=== PATIENT | male | born 1960 | race Hispanic/Latino ===

== ENCOUNTER 2022-01-13 04:53 | Emergency (ER) | payer SELFPAY ==
[2022-01-13] MEDS ORDERED: FOLIC ACID 5 MG/ML VIAL ONE (05:24)
[2022-01-13] MEDS ORDERED: NA CHLORIDE 0.9% 1,000 ML ONE (05:24)
[2022-01-13] MEDS ORDERED: ASPIRIN 81 MG CHEWABLE TABLET ONE (05:31)
--- NOTE | 2022-01-13 05:37 | ER ---
Nurse's Notes [facility] Name: Wolfgang Daniel Age: 61 yrs Sex: Male : 1960 Arrival Date: 01/13/2022 Time: 04:55 Bed 13 Private MD: Diagnosis: Cerebral infarction, unspecified-DENSE LEFT HEMIPARESIS;Non ST elevation ND;Cerebral infarction due to unspecified occlusion or stenosis of left carotid arteries-INTERNAL CAROTID;Cerebral infarction due to unspecified occlusion or stenosis of left vertebral artery-NEAR COMPLETE;Essential (primary) hypertension;Type 2 diabetes mellitus with hyperglycemia Presentation: 01/13 05:00 Chief complaint: Patient's son or daughter states: "We found him on the kitchen floor vc1 unable to move his left side.". 05:00 Acuity: RIKA 2 vc1 05:00 Coronavirus screen: Vaccine status: Patient reports being unvaccinated. At this time, vc1 the client does not indicate any symptoms associated with coronavirus-19. Ebola Screen: No symptoms or risks identified at this time. An acute neurological deficit is present. The charge nurse has been notified. The patient has been moved to a treatment area. Pre-hospital glucose is not applicable to this patient. Initial Sepsis Screen: Does the patient meet any 2 criteria? No. Patient's initial sepsis screen is negative. Does the patient have a suspected source of infection? No. Patient's initial sepsis screen is negative. Risk Assessment: Do you want to hurt yourself or someone else? Patient reports no desire to harm self or others. Onset of symptoms is unknown. 05:00 Method Of Arrival: Wheelchair vc1 Triage Assessment: 06:00 The onset of the patients symptoms was at an unknown time. General: Appears vc1 uncomfortable, Behavior is cooperative, flat. Pain: Denies pain. EENT: No deficits noted. Neuro: Level of Consciousness is obeys commands, lethargic, listless, Oriented to person, place, situation, Customer Engineer are weak on left Paralysis in left arm(s) leg(s) Speech is slurred, Facial droop on left, Reports weakness in left leg and left arm. Cardiovascular: No deficits noted. Respiratory: Airway is patent Respiratory effort is even, unlabored, Respiratory pattern is regular, symmetrical. GI: No deficits noted. : No deficits noted. Derm: No deficits noted. Musculoskeletal: No deficits noted. 07:00 The onset of the patients symptoms was The onset of the patients symptoms was at an jg9 unknown time. Stroke Activation: Symptom onset > 6 hours Physician: Stroke Attending; Name: ; Notified At: ; Arrived At: Physician: Chief Stroke Resident; Name: ; Notified At: ; Arrived At: Physician: Stroke Resident; Name: ; Notified At: ; Arrived At: Physician: ED Attending; Name: ; Notified At: ; Arrived At: Physician: ED Resident; Name: ; Notified At: ; Arrived At: Historical: - Allergies: 05:00 No Known Allergies; vc1 - Home Meds: 05:00 metformin 850 mg Oral tab 1 tab 3 times per day [Active]; aspirin 81 mg Oral chew 1 tab vc1 once daily [Active]; - PMHx: 05:00 Hypertensive disorder; Diabetes mellitus; vc1 - PSHx: 05:00 None; vc1 - Immunization history:: Adult Immunizations up to date, Client reports having NOT received the Covid vaccine. - Social history:: Smoking status: Patient denies any tobacco usage or history of. - Family history:: not pertinent. Screenin:00 Abuse screen: Denies threats or abuse. Nutritional screening: No deficits noted. vc1 Tuberculosis screening: No symptoms or risk factors identified. Fall Risk Fall in past 12 months (25 points). No secondary diagnosis (0 pts). IV access (20 points). Ambulatory Aid- None/Bed Rest/Nurse Assist (0 pts). Gait- Impaired (20 pts.). Mental Status- Oriented to own ability (0 pts). Total Mendoza Fall Scale indicates Low Risk Score (25-44 pts). Fall prevention measures have been instituted. Side Rails Up X 2. Assessment: 05:40 VAN Scoring: Arm Drift: Flaccid/no antigravity Visual Disturbance: No visual vc1 disturbance noted. Aphasia: No aphasia noted. Neglect: No neglect noted. Patient has been NPO before screening. The patient is alert, and able to follow commands. The patient exhibits slurred or garbled speech. The patient is exhibiting difficulty speaking. The patient does not exhibit difficulty understanding words. The patient is able to swallow own secretions with no drooling or need for suction. The patient did not tolerate one teaspoon of water. Drooling, immediate coughing, gurgling, or clearing of the throat was noted. Bedside swallow screening discontinued. Patient kept NPO until cleared by Speech Therapy or Physician. The patient failed the bedside swallow screening. The patient will be kept NPO until cleared by Speech Therapy or Physician. Provider notified of bedside swallow screening results: Romeo Landis MD. T-PA (Activase) Screening: Indications: Definite evidence of stroke, ischemic, embolic, or hypertensive: Yes. Treatment will start within 4.5 hours onset of symptoms: No. Contraindications: Patient reports onset of signs and symptoms of stroke greater than 6 hours ago: Yes. Pain: Denies pain. Neuro: Level of Consciousness is lethargic, Oriented to person, place. 07:22 Reassessment: Patient and/or family updated on plan of care and expected duration. Pain jg9 level reassessed. Patient is alert, oriented x 3, equal unlabored respirations, skin warm/dry/pink. Patient alert in bed, hemiplegia has resolved, patient passed swallow screen, no distress, vss Patient states symptoms have improved. 07:50 Reassessment: Heparin drip and Magnesium drip given to flight crew to start en route. jg9 07:52 Reassessment: report called to [facility] Charge Nurse, Gabriela. jg9 Vital Signs: 05:00 BP 106 / 70; Pulse 75; Resp 16; Temp 97.4(O); Pulse Ox 100% on R/A; Weight 61.23 kg; vc1 Height 5 ft. 4 in. (162.56 cm); Pain 0/10; 05:30 BP 112 / 66; Pulse 69; Resp 16; Pulse Ox 100% ; vc1 06:00 BP 116 / 71; Pulse 70; Resp 13; Pulse Ox 100% ; vc1 07:00 BP 118 / 71; Pulse 76; Resp 18; Pulse Ox 98% on R/A; vc1 05:00 Body Mass Index 23.17 (61.23 kg, 162.56 cm) vc1 NIH Stroke Scale Scores: 05:24 NIHSS Score: 17 benito 05:40 NIHSS Score: 13 vc1 07:03 NIHSS Score: 0 vc1 ED Course: 04:55 Patient arrived in ED. as 04:57 Romeo Landis MD is Attending Physician. benito 05:00 Arm band placed on left wrist. EKG completed in triage. Results shown to MD. vc1 05:00 Patient has correct armband on for positive identification. Bed in low position. Call vc1 light in reach. Side rails up X2. Client placed on continuous cardiac and pulse oximetry monitoring. NIBP monitoring applied. 05:10 CT Stroke Brain w/o Contrast In Process Unspecified. EDMS 05:15 Inserted saline lock: 18 gauge in right antecubital area, using aseptic technique. vc1 05:15 Inserted saline lock: 18 gauge in left antecubital area, using aseptic technique. Blood vc1 collected. 05:22 XRAY Chest (1 view) In Process Unspecified. EDMS 05:59 Triage completed. vc1 06:23 Notified ED physician of a critical lab result(s). Troponin 43582. lp1 06:39 CT Head Angio In Process Unspecified. EDMS 06:40 CT Neck Angio In Process Unspecified. EDMS 07:11 administrative approval given by Shae Perdomo Rn/ patient has been accepted to [facility]/ Dr. Fish Caraballo has accepted the patient in transfer/ patient can not leave until the CTA results have been called to the transfer center/ report to be called to the transfer center at [phone]. 07:20 Saundra Turner, RN is Primary Nurse. jg9 07:42 Add On-Lab Sent. jg9 07:51 No provider procedures requiring assistance completed. jg9 07:52 Patient transferred, IV remains in place. jg9 Administered Medications: 05:23 Drug: foLIC Acid 1 mg Route: IVPB; Site: right antecubital; lp1 07:21 Follow up: IV Status: Completed infusion; IV Intake: 0.2ml jg9 05:23 Drug: NS 0.9% 1000 ml Route: IV; Rate: 1 bolus; Site: right antecubital; lp1 07:20 Follow up: IV Status: Completed infusion; IV Intake: 1000ml jg9 05:33 Drug: Aspirin Chewable Tablet 324 mg Route: PO; lp1 07:20 Follow up: Response: No adverse reaction jg9 07:15 Drug: PlaVIX (clopidogrel) 75 mg Route: PO; jg9 07:22 Follow up: Response: No adverse reaction jg9 07:38 Drug: Heparin (ND-Bolus No thrombolytic) - HEParin 60 units/kg {Co-Signature: lp1 jg9 (Aurora Hwang RN).} Route: IVP; Site: right antecubital; 07:40 Drug: Pepcid (famotidine) 20 mg Route: IVP; Site: right antecubital; jg9 07:42 Follow up: Response: No adverse reaction jg9 07:40 Drug: Lipitor (atorvastatin) 40 mg Route: PO; jg9 07:41 Follow up: Response: No adverse reaction jg9 07:41 Drug: PlaVIX (clopidogrel) 225 mg Route: PO; jg9 07:41 Follow up: Response: No adverse reaction jg9 Medication: 05:40 VIS not applicable for this client. vc1 Point of Care Testing: Blood Glucose: 05:00 Blood Glucose: 107 mg/dL; vc1 Ranges: Intake: 07:20 IV: 1000ml; Total: 1000ml. jg9 07:21 IV: 0ml; Total: 1000ml. jg9 Outcome: 05:37 ER care complete, transfer ordered by [facility] 07:51 [facility]red by helicopter to [facility], Transfer form completed. jg9 X-rays sent w/ patient. 07:51 Condition: stable 07:53 Patient left the ED. jg9 NIH Stroke Scale - NIH Stroke Score Date: 01/13/2022 Time: 05:24 Total Score = 17 1a. Level of Consciousness (LOC) - 1(Not Alert) 1b. Level of Consciousness (LOC) (Month \\T\\ Age) - 2(Neither) 1c. LOC Commands (Open \\T\\ Closes Eyes/Hatchery Attendant) - 0(Both) 2. Best Gaze (Lateral Gaze Paresis) - 0(Normal) 3. Visual Field Loss - 0(No visual loss) 4. Facial Palsy - 2(Partial paralysis) 5a. Left Arm: Motor (10-second hold) - 3(No effort against gravity) 5b. Right Arm: Motor (10-second hold) - 0(No drift) 6a. Left Leg: Motor (5-second hold - always test supine) - 3(No effort against gravity) 6b. Right Leg: Motor (5-second hold - always test supine) - 0(No drift) 7. Limb Ataxia (finger/nose \\T\\ heel/[place] - test with eyes open) - 2(Present in two limbs) 8. Sensory Loss (pinprick arms/legs/face) - 1(Mild to moderate loss) 9. Best Language: Aphasia (description/naming/reading) - 1(Mild to moderate aphasia) 10. Dysarthria (speech clarity - read or repeat words) - 1(Mild to Moderate) 11. Extinction and Inattention (visual/tactile/auditory/spatial/personal) - 1(Present) Initials: benito NIH Stroke Scale - NIH Stroke Score Date: 01/13/2022 Time: 05:40 Total Score = 13 1a. Level of Consciousness (LOC) - 1(Not Alert) 1b. Level of Consciousness (LOC) (Month \\T\\ Age) - 0(Both) 1c. LOC Commands (Open \\T\\ Closes Eyes/Hatchery Attendant) - 1(One) 2. Best Gaze (Lateral Gaze Paresis) - 0(Normal) 3. Visual Field Loss - 0(No visual loss) 4. Facial Palsy - 2(Partial paralysis) 5a. Left Arm: Motor (10-second hold) - 4(No movement) 5b. Right Arm: Motor (10-second hold) - 0(No drift) 6a. Left Leg: Motor (5-second hold - always test supine) - 4(No movement) 6b. Right Leg: Motor (5-second hold - always test supine) - 0(No drift) 7. Limb Ataxia (finger/nose \\T\\ heel/[place] - test with eyes open) - 0(Absent) 8. Sensory Loss (pinprick arms/legs/face) - 0(Normal) 9. Best Language: Aphasia (description/naming/reading) - 0(No aphasia) 10. Dysarthria (speech clarity - read or repeat words) - 1(Mild to Moderate) 11. Extinction and Inattention (visual/tactile/auditory/spatial/personal) - 0(No abnormality) Initials: vc1 NIH Stroke Scale - NIH Stroke Score Date: 01/13/2022 Time: 07:03 Total Score = 0 1a. Level of Consciousness (LOC) - 0(Alert) 1b. Level of Consciousness (LOC) (Month \\T\\ Age) - 0(Both) 1c. LOC Commands (Open \\T\\ Closes Eyes/Hatchery Attendant) - 0(Both) 2. Best Gaze (Lateral Gaze Paresis) - 0(Normal) 3. Visual Field Loss - 0(No visual loss) 4. Facial Palsy - 0(Normal) 5a. Left Arm: Motor (10-second hold) - 0(No drift) 5b. Right Arm: Motor (10-second hold) - 0(No drift) 6a. Left Leg: Motor (5-second hold - always test supine) - 0(No drift) 6b. Right Leg: Motor (5-second hold - always test supine) - 0(No drift) 7. Limb Ataxia (finger/nose \\T\\ heel/[place] - test with eyes open) - 0(Absent) 8. Sensory Loss (pinprick arms/legs/face) - 0(Normal) 9. Best Language: Aphasia (description/naming/reading) - 0(No aphasia) 10. Dysarthria (speech clarity - read or repeat words) - 0(Normal) 11. Extinction and Inattention (visual/tactile/auditory/spatial/personal) - 0(No abnormality) Initials: vc1 Signatures: Dispatcher [employer] EDRomeo Rodriguez MD MD cha Martinez, Amelia as Pena, Laura, RN RN lp1 Kylah Self Jennifer, RN RN jg9 Ronda De Paz RN RN vc1 Aurora Hwang RN lp1 Corrections: (The following items were deleted from the chart) 07:50 07:49 Magnesium Sulfate 1 grams IVPB in Other over 1 hrs jg9 jg9
--- NOTE | 2022-01-13 05:37 | EDPHYS ---
Physician Documentation [facility] Name: Wolfgang Daniel Age: 61 yrs Sex: Male : 1960 Arrival Date: 01/13/2022 Time: 04:55 Bed 13 Private MD: ED Physician Romeo Landis HPI: 01/13 05:24 This 61 yrs old Male presents to ER via Unassigned with complaints of S/S of benito Possible Stroke. 05:24 The patient's problem is reported as a facial droop, paresthesias, in left upper benito extremity, in left lower extremity, in left side of face, weakness, in the left upper extremity, in the left lower extremity, in the left side of face. Onset: The symptoms/episode began/occurred at an unknown time. Duration: The episode is continuous. Context: the episode(s) was witnessed, by family, symptoms became apparent at 04:30. The symptoms are alleviated by nothing. The symptoms are aggravated by nothing. Associated signs and symptoms: Pertinent positives: gait abnormality, DENSE LEFT ARM, LEG AND LEFT LOWER FACE PARESTHESIAS. Severity of symptoms: At their worst the symptoms were moderate severe in the emergency department the symptoms are unchanged. Patient's baseline: Neuro: alert and fully oriented. The patient has not experienced similar symptoms in the past. Historical: - Allergies: 05:00 No Known Allergies; vc1 - Home Meds: 05:00 metformin 850 mg Oral tab 1 tab 3 times per day [Active]; aspirin 81 mg Oral chew 1 tab vc1 once daily [Active]; - PMHx: 05:00 Hypertensive disorder; Diabetes mellitus; vc1 - PSHx: 05:00 None; vc1 - Immunization history:: Adult Immunizations up to date, Client reports having NOT received the Covid vaccine. - Social history:: Smoking status: Patient denies any tobacco usage or history of. - Family history:: not pertinent. ROS: 05:24 Constitutional: Negative for fever, chills, and weight loss, Eyes: Negative for injury, benito pain, redness, and discharge, ENT: Negative for injury, pain, and discharge, Neck: Negative for injury, pain, and swelling, Cardiovascular: Negative for chest pain, palpitations, and edema, Respiratory: Negative for shortness of breath, cough, wheezing, and pleuritic chest pain, Abdomen/GI: Negative for abdominal pain, nausea, vomiting, diarrhea, and constipation, Back: Negative for injury and pain, : Negative for injury, bleeding, discharge, and swelling, Skin: Negative for injury, rash, and discoloration, Psych: Negative for depression, anxiety, suicide ideation, homicidal ideation, and hallucinations, Allergy/Immunology: Negative for hives, rash, and allergies, Endocrine: Negative for neck swelling, polydipsia, polyuria, polyphagia, and marked weight changes, Hematologic/Lymphatic: Negative for swollen nodes, abnormal bleeding, and unusual bruising. 05:24 MS/extremity: Positive for decreased range of motion, paresthesias, of the face, left arm and left leg. Exam: 05:24 Radiologist reports: NEGATIVE benito 05:24 Constitutional: This is a well developed, well nourished patient who is awake, alert, and in no acute distress. Eyes: Pupils equal round and reactive to light, extra-ocular motions intact. Lids and lashes normal. Conjunctiva and sclera are non-icteric and not injected. Cornea within normal limits. Periorbital areas with no swelling, redness, or edema. ENT: Nares patent. No nasal discharge, no septal abnormalities noted. Tympanic membranes are normal and external auditory canals are clear. Oropharynx with no redness, swelling, or masses, exudates, or evidence of obstruction, uvula midline. Mucous membranes moist. Neck: Trachea midline, no thyromegaly or masses palpated, and no cervical lymphadenopathy. Supple, full range of motion without nuchal rigidity, or vertebral point tenderness. No Meningismus. Chest/axilla: Normal chest wall appearance and motion. Nontender with no deformity. No lesions are appreciated. Cardiovascular: Regular rate and rhythm with a normal S1 and S2. No gallops, murmurs, or rubs. Normal PMI, no JVD. No pulse deficits. Respiratory: Lungs have equal breath sounds bilaterally, clear to auscultation and percussion. No rales, rhonchi or wheezes noted. No increased work of breathing, no retractions or nasal flaring. Abdomen/GI: Soft, non-tender, with normal bowel sounds. No distension or tympany. No guarding or rebound. No evidence of tenderness throughout. Back: No spinal tenderness. No costovertebral tenderness. Full range of motion. Male : Normal genitalia with no discharge or lesions. Skin: Warm, dry with normal turgor. Normal color with no rashes, no lesions, and no evidence of cellulitis. MS/ Extremity: Pulses equal, no cyanosis. Neurovascular intact. Full, normal range of motion. Psych: Awake, alert, with orientation to person, place and time. Behavior, mood, and affect are within normal limits. 05:24 Neuro: Orientation: unable to test, Mentation: slow to respond, Memory: unable to test, Cranial nerves: facial droop noted on left, with forehead spared. Cerebellar function: unable to test, Motor: Strength is 1/5 in the face, left arm and left leg. 05:38 ECG was reviewed by the Attending Physician. benito 06:45 ECG was reviewed by the Attending Physician. [facility] Vital Signs: 05:00 BP 106 / 70; Pulse 75; Resp 16; Temp 97.4(O); Pulse Ox 100% on R/A; Weight 61.23 kg; vc1 Height 5 ft. 4 in. (162.56 cm); Pain 0/10; 05:30 BP 112 / 66; Pulse 69; Resp 16; Pulse Ox 100% ; vc1 06:00 BP 116 / 71; Pulse 70; Resp 13; Pulse Ox 100% ; vc1 07:00 BP 118 / 71; Pulse 76; Resp 18; Pulse Ox 98% on R/A; vc1 05:00 Body Mass Index 23.17 (61.23 kg, 162.56 cm) vc1 NIH Stroke Scale Scores: 05:24 NIHSS Score: 17 benito 05:40 NIHSS Score: 13 vc1 07:03 NIHSS Score: 0 vc1 MDM: 04:58 Patient medically screened. benito 05:34 Differential diagnosis: CVA, TIA, Dementia, paralysis, metabolic disorder, drug benito effects. Data reviewed: vital signs, nurses notes, lab test result(s), EKG, radiologic studies, CT scan, plain films. Data interpreted: sweatband maker: rate is 72 beats/min, rhythm is regular, Pulse oximetry: is not applicable for this patient encounter. is 72 %. Test interpretation: by ED physician or midlevel provider: ECG, plain radiologic studies. Counseling: I had a detailed discussion with the patient and/or guardian regarding: the historical points, exam findings, and any diagnostic results supporting the discharge/admit diagnosis, lab results, radiology results, the need to transfer to another facility, for higher level of care, [facility] does not immediately have the required specialist. 05:37 ED course: BED VAT 9PM , NORMAL, ON FLOOR 430 AM LEFT ALUREL AND LEFT LOWER FACE. [facility] 01/13 04:59 Order name: Basic Metabolic Panel; Complete Time: 06:24 [facility] 01/13 04:59 Order name: CBC with Diff; Complete Time: 06:24 [facility] 01/13 04:59 Order name: LFT's; Complete Time: 06:24 [facility] 01/13 04:59 Order name: Magnesium; Complete Time: 06:24 [facility] 01/13 04:59 Order name: NT PRO-BNP; Complete Time: 06:24 [facility] 01/13 04:59 Order name: PT-INR [facility] 01/13 04:59 Order name: Troponin HS; Complete Time: 06:24 [facility] 01/13 04:59 Order name: XRAY Chest (1 view) [facility] 01/13 04:59 Order name: CT Stroke Brain w/o Contrast [facility] 01/13 05:00 Order name: CT Head Angio [facility] 01/13 05:20 Order name: Glucose, Ancillary Testing; Complete Time: 06:24 EDMS 01/13 05:27 Order name: COVID-19 SARS RT PCR (Document "Date of Onset" if Symptomatic); Complete lp1 Time: 07:18 01/13 07:27 Order name: Add On-Lab jl7 01/13 07:31 Order name: PTT, Activated Partial Thromb EDMS 01/13 04:59 Order name: EKG; Complete Time: 05:03 [facility] 01/13 04:59 Order name: Cardiac monitoring; Complete Time: 05:14 [facility] 01/13 04:59 Order name: EKG - Nurse/Tech; Complete Time: 05:23 [facility] 01/13 04:59 Order name: IV Saline Lock; Complete Time: 05:15 [facility] 01/13 05:00 Order name: CT Neck Angio [facility] 01/13 06:26 Order name: EKG; Complete Time: 06:26 [facility] 01/13 04:59 Order name: Labs collected and sent; Complete Time: 05:15 [facility] 01/13 04:59 Order name: O2 Per Protocol; Complete Time: 05:15 [facility] 01/13 04:59 Order name: O2 Sat Monitoring; Complete Time: 05:15 benito 01/13 06:26 Order name: EKG - Nurse/Tech; Complete Time: 07:03 benito EC:38 Rate is 72 beats/min. Rhythm is regular. QRS [place] is Normal. [place] interval is normal. QRS benito interval is normal. QT interval is normal. No Q waves. T waves are Normal. No ST changes noted. Clinical impression: Normal ECG and No evidence of ischemia. Interpreted by me. Reviewed by me. 06:45 Rate is 77 beats/min. Rhythm is regular. QRS [place] is Normal. [place] interval is normal. QRS benito interval is normal. QT interval is normal. No Q waves. T waves are Normal. No ST changes noted. Clinical impression: Normal ECG, NSR w/ Non-specific ST/T Changes, and No evidence of ischemia. Interpreted by me. Reviewed by me. Administered Medications: 05:23 Drug: foLIC Acid 1 mg Route: IVPB; Site: right antecubital; lp1 07:21 Follow up: IV Status: Completed infusion; IV Intake: 0.2ml j9 05:23 Drug: NS 0.9% 1000 ml Route: IV; Rate: 1 bolus; Site: right antecubital; lp1 07:20 Follow up: IV Status: Completed infusion; IV Intake: 1000ml j9 05:33 Drug: Aspirin Chewable Tablet 324 mg Route: PO; lp1 07:20 Follow up: Response: No adverse reaction jg9 07:15 Drug: PlaVIX (clopidogrel) 75 mg Route: PO; jg9 07:22 Follow up: Response: No adverse reaction jg9 07:38 Drug: Heparin (NM-Bolus No thrombolytic) - HEParin 60 units/kg {Co-Signature: lp1 jg9 (Aurora Hwang RN).} Route: IVP; Site: right antecubital; 07:40 Drug: Pepcid (famotidine) 20 mg Route: IVP; Site: right antecubital; jg9 07:42 Follow up: Response: No adverse reaction jg9 07:40 Drug: Lipitor (atorvastatin) 40 mg Route: PO; jg9 07:41 Follow up: Response: No adverse reaction jg9 07:41 Drug: PlaVIX (clopidogrel) 225 mg Route: PO; jg9 07:41 Follow up: Response: No adverse reaction jg9 Point of Care Testing: Blood Glucose: 05:00 Blood Glucose: 107 mg/dL; vc1 Ranges: Critical Glucose Levels:Adult <50 mg/dl or >400 mg/dl <40 mg/dl or >180 mg/dl Disposition Summary: 01/13/22 05:37 Transfer Ordered Transfer Location: [facility] benito Reason: Higher level of care benito Condition: Fair benito Problem: new benito Symptoms: have worsened benito Accepting Physician: TO NICU, [facility], ER(01/13/22 07:53) jg9 Diagnosis - Cerebral infarction, unspecified - DENSE LEFT HEMIPARESIS benito - Non ST elevation NM benito - Cerebral infarction due to unspecified occlusion or stenosis of left carotid benito arteries - INTERNAL CAROTID - Cerebral infarction due to unspecified occlusion or stenosis of left vertebral benito artery - NEAR COMPLETE - Essential (primary) hypertension benito - Type 2 diabetes mellitus with hyperglycemia benito Forms: - Medication Reconciliation Form benito - SBAR form benito NIH Stroke Scale - NIH Stroke Score Date: 01/13/2022 Time: 05:24 Total Score = 17 1a. Level of Consciousness (LOC) - 1(Not Alert) 1b. Level of Consciousness (LOC) (Month \\T\\ Age) - 2(Neither) 1c. LOC Commands (Open \\T\\ Closes Eyes/[facility]) - 0(Both) 2. Best Gaze (Lateral Gaze Paresis) - 0(Normal) 3. Visual Field Loss - 0(No visual loss) 4. Facial Palsy - 2(Partial paralysis) 5a. Left Arm: Motor (10-second hold) - 3(No effort against gravity) 5b. Right Arm: Motor (10-second hold) - 0(No drift) 6a. Left Leg: Motor (5-second hold - always test supine) - 3(No effort against gravity) 6b. Right Leg: Motor (5-second hold - always test supine) - 0(No drift) 7. Limb Ataxia (finger/nose \\T\\ heel/[place] - test with eyes open) - 2(Present in two limbs) 8. Sensory Loss (pinprick arms/legs/face) - 1(Mild to moderate loss) 9. Best Language: Aphasia (description/naming/reading) - 1(Mild to moderate aphasia) 10. Dysarthria (speech clarity - read or repeat words) - 1(Mild to Moderate) 11. Extinction and Inattention (visual/tactile/auditory/spatial/personal) - 1(Present) Initials: benito NIH Stroke Scale - NIH Stroke Score Date: 01/13/2022 Time: 05:40 Total Score = 13 1a. Level of Consciousness (LOC) - 1(Not Alert) 1b. Level of Consciousness (LOC) (Month \\T\\ Age) - 0(Both) 1c. LOC Commands (Open \\T\\ Closes Eyes/[facility]) - 1(One) 2. Best Gaze (Lateral Gaze Paresis) - 0(Normal) 3. Visual Field Loss - 0(No visual loss) 4. Facial Palsy - 2(Partial paralysis) 5a. Left Arm: Motor (10-second hold) - 4(No movement) 5b. Right Arm: Motor (10-second hold) - 0(No drift) 6a. Left Leg: Motor (5-second hold - always test supine) - 4(No movement) 6b. Right Leg: Motor (5-second hold - always test supine) - 0(No drift) 7. Limb Ataxia (finger/nose \\T\\ heel/[place] - test with eyes open) - 0(Absent) 8. Sensory Loss (pinprick arms/legs/face) - 0(Normal) 9. Best Language: Aphasia (description/naming/reading) - 0(No aphasia) 10. Dysarthria (speech clarity - read or repeat words) - 1(Mild to Moderate) 11. Extinction and Inattention (visual/tactile/auditory/spatial/personal) - 0(No abnormality) Initials: vc1 NIH Stroke Scale - NIH Stroke Score Date: 01/13/2022 Time: 07:03 Total Score = 0 1a. Level of Consciousness (LOC) - 0(Alert) 1b. Level of Consciousness (LOC) (Month \\T\\ Age) - 0(Both) 1c. LOC Commands (Open \\T\\ Closes Eyes/[facility]) - 0(Both) 2. Best Gaze (Lateral Gaze Paresis) - 0(Normal) 3. Visual Field Loss - 0(No visual loss) 4. Facial Palsy - 0(Normal) 5a. Left Arm: Motor (10-second hold) - 0(No drift) 5b. Right Arm: Motor (10-second hold) - 0(No drift) 6a. Left Leg: Motor (5-second hold - always test supine) - 0(No drift) 6b. Right Leg: Motor (5-second hold - always test supine) - 0(No drift) 7. Limb Ataxia (finger/nose \\T\\ heel/[place] - test with eyes open) - 0(Absent) 8. Sensory Loss (pinprick arms/legs/face) - 0(Normal) 9. Best Language: Aphasia (description/naming/reading) - 0(No aphasia) 10. Dysarthria (speech clarity - read or repeat words) - 0(Normal) 11. Extinction and Inattention (visual/tactile/auditory/spatial/personal) - 0(No abnormality) Initials: vc1 Signatures: Dispatcher [employer] EDRomeo Rodriguez MD MD cha Pena, Laura, RN RN lp1 Saundra Turner RN RN jg9 Ronda De Paz RN RN vc1 Aurora Hwang RN lp1 Corrections: (The following items were deleted from the chart) 06:26 05:[address] [facility], [facility] benito benito 07:30 06:[address] [facility], [facility] benito benito 07:42 05:00 Urine Dipstick-Ancillary ordered. benito jg9 07:46 07:[address] [facility], [facility] benito benito 07:53 07:[address] [facility], [facility] benito jg9
[2022-01-13 05:53] LABS: Protime INR 0.97
[2022-01-13 05:55] LABS: Absolute Lymphocytes (CBC) 4.1 K/uL (0.7-4.9); Hematocrit 34.7 % (39.6-49.0); Lymphocytes % 39.4 % (15.3-44.8); MPV 10.6 fL (7.6-11.3); RBC Red Blood Cell Count 3.75 M/uL (4.33-5.43)
[2022-01-13 06:09] LABS: Albumin 3.4 g/dL (3.4-5.0); Bilirubin Direct 0.1 mg/dL (0-0.2); Bilirubin Total 0.6 mg/dL (0.2-1.0); Magnesium 1.5 mg/dL (1.8-2.4); Potassium 3.8 mmol/L (3.5-5.1); Protein, Total 6.1 g/dL (6.4-8.2)
[2022-01-13] MEDS ORDERED: CLOPIDOGREL 75 MG TABLET ONE ×2 (07:06→07:37)
[2022-01-13] MEDS ORDERED: HEPARIN 5000 UNIT/ML 1 ML VIAL ONE (07:37)
--- NOTE | 2022-01-13 07:37 | RAD REPORT ---
EXAM DESCRIPTION: CT - Neck Angio - 01/13/2022 6:38 am CLINICAL HISTORY: Neuro deficit, acute, stroke suspected TECHNIQUE: During dynamic enhancement using nonionic IV contrast, axial 2 mm thick images of the nec k were obtained. Sagittal and axial reconstruction images were generated using MIP technique and revi ewed. All CT scans are performed using dose optimization technique as appropriate and may include automated exposure control or mA/KV adjustment according to patient size. COMPARISON: CT head 01/13/2022 FINDINGS: Aortic arch is bovine configuration with no origin stenoses. Atherosclerotic calcificatio ns are mild. Left vertebral artery origin is unremarkable. Partially imaged left subclavian artery is unremarkable. Right subclavian artery is grossly unremarkable but partially obscured by the dense co ntrast in the right subclavian vein. No aneurysm or vascular malformation identified. Left common carotid artery is normal in diameter to just proximal to the carotid bulb level. There is dense atherosclerotic calcifications at the carotid bulb causing short-segment 60-70% stenosis. The left internal carotid artery shows dense calcifications in the proximal portion causing 40% stenosis. Mid and distal portions of the left internal carotid artery to the skullbase show no additional sign ificant finding. Left common carotid artery shows a circumferential narrowing along the entire length from origin to c arotid bulb when compared to the left. No calcifications are seen. No intimal flap or other finding o f acute dissection. The vessel is approximately 40% narrow lower than the left common carotid artery. Dense carotid bulb calcifications are present on the right causing 70% stenosis. The right internal carotid artery is occluded from origin to the supraclinoid termination. No identifiable flow in the proximal and midportion of the right vertebral artery. Approximately C3 l evel there is faint opacification of the right vertebral artery within the transverse foramen of C3. Faint contrast continues in this very small vessel to the level of the basilar artery. Decreased density is present in the contrast opacified left jugular vein at the base of the neck. Thi s is potentially a mixture of opacified and non-opacified blood. Left jugular thrombus cannot be excl uded. IMPRESSION: Occluded right internal carotid artery from origin to the supraclinoid termination. Age of the occlusion cannot be determined. Probable occlusion of the proximal right vertebral artery. No blood flow is identifiable in the right vertebral artery from origin to the C3 level. There is faint opacification of the very small vessel from the C3 transverse foramen to the basilar artery. Very dense bilateral carotid bulb calcification with bilateral stenosis up to 70%. Narrowing of the entire lumen of the right common carotid artery from origin to carotid bulb. No spec ific findings of dissection. The vessel is approximately 40% narrower than the normal-appearing left common carotid artery. Left jugular vein thrombus suspected causing approximately 30% luminal narrowing. This is potentially a mixture of unopacified and opacified blood.
[2022-01-13] MEDS ORDERED: MAGNESIUM SULFATE 1 gm IVPB 1 GM/100 ML BAG IV ONE (07:38)
[2022-01-13] MEDS ORDERED: ATORVASTATIN 20 MG TAB ONE (07:38)
[2022-01-13] MEDS ORDERED: FAMOTIDINE 20 MG/2 ML VIAL IV ONE (07:38)
[2022-01-13] MEDS ORDERED: HEPARIN/D5W 25,000 UNIT/500 ML BAG IV ONE (07:38)
--- NOTE | 2022-01-13 07:43 | RAD REPORT ---
EXAM DESCRIPTION: CT - Head angio - 01/13/2022 6:38 am CLINICAL HISTORY: Neuro deficit, acute, stroke suspected TECHNIQUE: During dynamic enhancement using nonionic IV contrast, axial 1 millimeter thick images of the head were obtained. Sagittal and axial reconstruction images were generated using MIP technique and reviewed. All CT scans are performed using dose optimization technique as appropriate and may include automated exposure control or mA/KV adjustment according to patient size. COMPARISON: CT head same date, CT angio neck same date FINDINGS: Only faint opacification seen in a very small distal right vertebral artery to the bases basilar artery. Distal left vertebral artery is unremarkable. Basilar artery is tortuous but normal i n diameter. No focal basilar artery abnormality. No named branch occlusion, vasculitis or other acute finding in the bilateral posterior cerebral arteries. Major venous sinuses are patent. Petrous portions of the left internal carotid artery are normal. Dense calcifications are present in the cavernous and supraclinoid portions of the left internal carotid artery causing short-segment kamille nosis to 50%. No significant stenosis or vascular abnormality of the M1 MCA into A1 ISAAC segments. The more peripheral MCA branches appear to be normal in diameter with no named branch occlusion or vascu litis. Left anterior cerebral artery distal branches unremarkable as well. The right internal carotid artery is occluded from skullbase to supraclinoid termination. Age of the occlusion is uncertain. Separate CT angio neck shows entire right ICA to be occluded. There are dense cavernous and supraclinoid calcifications. Right anterior cerebral vasculature is opacified. Anterior communicating artery is present. Right mid dle cerebral branches are opacified. Right MCA distribution is generally smaller than the left but no named branch occlusion or vasculitis findings confirmed. IMPRESSION: Occlusion of the right internal carotid artery, age uncertain, from skullbase determina tion. Separately reported CT angio neck shows complete occlusion of the entire right ICA. Faint opacification of a very small distal right vertebral artery with CT angio neck showing occlusio n or nonvisualization of the right vertebral artery from origin to C3 level. The ISAAC, LENDING MANAGER and MCA distributions are opacified. No named branch occlusion or vasculitis confirmed. Anterior communicating and right posterior communicating arteries are present.
[2022-01-13 08:04] VITALS: TEMP 97.4
[2022-01-13 08:09] VITALS: BP 118/71; O2SAT 98
--- NOTE | 2022-01-13 10:56 | RAD REPORT ---
EXAM DESCRIPTION: XR CHEST 1 VIEW CLINICAL HISTORY: COUGH COMPARISON: None. TECHNIQUE: XR CHEST 1 VIEW 01/13/2022 5:00 AM CDT FINDINGS: Cardiac silhouette is normal in size. Lungs are clear without consolidation, atelectasis, mass or edema. There is no pleural effusion. There is no pneumothorax. There are no acute osseous fin dings. IMPRESSION: Clear lungs. Electronically signed by: Heber Carlos MD 01/13/2022 6:49 AM CDT Due to temporary technical issues with the PACS/Fluency reporting system, reports are being signed by the in house radiologist without review as a courtesy to ensure prompt reporting. The interpreting r adiologist is fully responsible for the content of the report.
--- NOTE | 2022-01-13 11:03 | RAD REPORT ---
EXAM DESCRIPTION: ADDENDUM #1 THIS REPORT CONTAINS FINDINGS THAT MAY BE CRITICAL TO PATIENT CARE: The findings were communicated via telephone conference with Dr. Landis on 01/13/2022 5:23 AM CDT. T kristen results were acknowledged and understood. Electronically signed by: Jordi Caballero MD 01/13/2022 7:40 AM CDT End of Addendum EXAM DESCRIPTION: CT Head COMPARISON: None. CLINICAL HISTORY: [facility] Neuro deficit, acute, stroke suspected TECHNIQUE: Axial images were obtained from skull base to vertex without intravenous contrast. Imag es viewed on bone and brain windows. Multiplanar reformats were performed. Automated exposure contr ol was utilized on this examination as a dose lowering technique. FINDINGS: Brain parenchyma, ventricles, dura, meninges, and extra-axial spaces: Ventricles and sulci are normal. Small chronic lacunar infarct of the anterior left internal capsule. No acute intracra nial hemorrhage or abnormal extra-axial fluid collections are present. Vascular structures: No hyperdense arteries or veins. Calvarium, mastoid air cells, paranasal sinuses and orbits: The calvarium is normal. The mastoid air cells are clear. Visualized paranasal sinuses are unremarkable. Orbital structures are unremarkable. IMPRESSION: 1. No acute intracranial abnormality. 2. Small chronic lacunar infarct of the anterior left internal capsule. Electronically signed by: Jordi Caballero MD 01/13/2022 5:21 AM CDT Due to temporary technical issues with the PACS/Fluency reporting system, reports are being signed by the in house radiologist without review as a courtesy to ensure prompt reporting. The interpreting r adiologist is fully responsible for the content of the report.
--- NOTE | 2022-01-14 17:30 | EKG ---
Test Date: 2022-01-13 Test Time: 06:33:02 Hand Compositor: ZULEMA MEASUREMENT RESULTS: Intervals: Rate: 77 MS: 174 QRSD: 102 QT: 416 QTc: 470 [place]: P: 64 MS: 174 QRS: 26 T: 41 INTERPRETIVE STATEMENTS: Normal sinus rhythm Nonspecific ST and T wave abnormality Abnormal ECG Compared to ECG 01/13/2022 05:21:57 ST (T wave) deviation now present Myocardial infarct finding no longer present Electronically Signed On 01-14-22 17:28:15 CDT by Valente Rebolledo
--- NOTE | 2022-01-14 17:30 | EKG ---
Test Date: 2022-01-13 Test Time: 05:21:57 [employer] Heating Installer: NICKI MEASUREMENT RESULTS: Intervals: Rate: 72 HI: 172 QRSD: 98 QT: 424 QTc: 464 [place]: P: 56 HI: 172 QRS: -3 T: 29 INTERPRETIVE STATEMENTS: Normal sinus rhythm Inferior infarct, age undetermined Abnormal ECG No previous ECG available for comparison Electronically Signed On 01-14-22 17:28:17 CDT by Valente Rebolledo
== END 2022-01-13 07:53 | disposition short-term general hospital (02) ==
LOC: ER 04:53
DX: I63.232 Cerebral infarction due to unspecified occlusion or stenosis of left carotid arteries (principal); I63.212 Cerebral infarction due to unspecified occlusion or stenosis of left vertebral artery; I21.4 Non-ST elevation (NSTEMI) myocardial infarction; I69.354 Hemiplegia and hemiparesis following cerebral infarction affecting left non-dominant side; I10 Essential (primary) hypertension; R29.717 NIHSS score 17; E11.65 Type 2 diabetes mellitus with hyperglycemia
CPT/HCPCS: 36415; 70450; 70496; 70498; 71045; 80048; 80076; 82947; 83735; 83880; 84484; 85025; 85610; 85730; 93005; 96365; 96366; 96375; 99285; J1644; J3475; J3490; J7030; Q9967; U0003